=== PATIENT | female | born 2000 | race Caucasian/White ===

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

== ENCOUNTER → 2018-11-09 | Outpatient (CLI) | payer OTHER ==
[~2018-11-09] VITALS: Ht 154.9 cm; Wt 55.0 kg
[2018-11-09 12:23] VITALS: BP 134/67
[2018-11-09 13:57] VITALS: BP 117/58
== END ==
LOC: AMSURD 11:53
DX: N39.0 Urinary tract infection, site not specified (principal); E86.0 Dehydration; R11.0 Nausea
CPT/HCPCS: A4216; J0696; J2405; J7030

== ENCOUNTER 2020-05-17 15:44 | Emergency (ER) | payer OTHER ==
[2020-05-17] MEDS ORDERED: LEXAPRO5 MG (16:07)
[2020-05-17 16:31] LABS: EOS # 0.2 (0.04-0.40); EOS % 2.2 % (1.0-5.0); HEMATOCRIT 39.3 % (37.0-47.0); HEMOGLOBIN 12.9 g/dL (12.5-16.0); LYMPH# 2.4 (1.50-4.00); MEAN CELL VOLUME 85 fl (78-100); MEAN CORPUSCULAR HEMOGLOBIN 28 pg (27-31); MEAN CORPUSCULAR HGB CONC 33 g/dL (33-37); MEAN PLATELET VOLUME 10.8 fl (7.4-10.4); MONO # 0.6 (0.20-0.80); NEU # 4.6 (1.40-6.50); PLATELET COUNT 288 K/mm3 (130-400); RED CELL DISTRIBUTION WIDTH 13.8 % (11.5-14.5); WHITE BLOOD COUNT 7.7 K/mm3 (4.8-10.8)
[2020-05-17 16:39] LABS: ALBUMIN 4.9 g/dL (3.5-5.0); POTASSIUM 3.9 mmol/L (3.5-5.1)
[2020-05-17 16:40] LABS: CALCIUM 9.5 mg/dL (8.3-10.5)
[2020-05-17 16:42] LABS: TOTAL PROTEIN 7.8 g/dL (6.4-8.3)
[2020-05-17 16:43] LABS: TOTAL BILIRUBIN 1.5 mg/dL (0.2-1.2)
[2020-05-17 17:27] LABS: PH-URINE 5.5 (5.0 - 8.0); URINE APPEARANCE CLEAR; URINE BILIRUBIN NEGATIVE (NEGATIVE); URINE BLOOD NEGATIVE (NEGATIVE); URINE COLOR LT YELLOW; URINE GLUCOSE NEGATIVE (NEGATIVE); URINE KETONE NEGATIVE (NEGATIVE); URINE LEUKOCYTE ESTERASE NEGATIVE (NEGATIVE); URINE NITRATE NEGATIVE (NEGATIVE); URINE PROTEIN(semi-quant) NEGATIVE (NEGATIVE); URINE UROBILINOGEN NORMAL (NORMAL); URINE WBC 0-1 /hpf (0-3)
[2020-05-17] MEDS ORDERED: KLONOPIN 0.5MG0.5 MG PO (17:37)
[2020-05-17 17:49] VITALS: BP 128/64
== END 2020-05-17 17:42 | disposition home or self-care (01) ==
LOC: ED 15:44
PROVIDERS: Family Medicine
DX: F41.9 Anxiety disorder, unspecified (principal); F32.9 Major depressive disorder, single episode, unspecified; Z32.02 Encounter for pregnancy test, result negative; Z88.2 Allergy status to sulfonamides; Z79.899 Other long term (current) drug therapy

== ENCOUNTER → 2020-10-30 | Outpatient (CLI) | payer BC, OTHER ==
[~2020-10-30] MED LIST: KLONOPIN 0.5MG0.5 MG PO; LEXAPRO5 MG
== END ==
LOC: RAD 08:53
DX: K76.89 Other specified diseases of liver (principal); R61 Generalized hyperhidrosis; R63.4 Abnormal weight loss; R10.30 Lower abdominal pain, unspecified
CPT/HCPCS: Q9967